=== PATIENT | male | born 1960 | race Caucasian/White ===

== ENCOUNTER 2024-01-05 15:42 | Emergency (ER) | payer BC, SELFPAY ==
[2024-01-05] VITALS (9 sets, daily range): BP systolic 129–158; BP diastolic 82–98; PULSE 74–81; RESP 10–21; TEMP 36.8; O2SAT 95–100
--- NOTE | ~2024-01-05 | XR_ITS ---
XR chest 1V Ordering provider: Damian Harp MD History: 63 years Male with . neuro symptoms . Comparison: None. FINDINGS: MEDIASTINUM: The cardiac silhouette is not enlarged. LUNGS: No infiltrates, effusions or pneumothorax. OTHER: No free air under the diaphragm. IMPRESSION: No acute cardiopulmonary pathology. Reviewed, dictated and finalized at location A.
--- NOTE | ~2024-01-05 | CT_ITS ---
CTA brain carotid Ordering provider: Damian Harp MD History: 63 years Male with . right arm weakness . Comparison: None. Technique: CT of the head without contrast. Radiation reduction technique utilized.The dose-length product was 1708.38 mGy. 100 mL Omnipaque 350 was given IV. FINDINGS: BRAIN PARENCHYMA AND CSF SPACES: Mild leukoaraiosis and diffuse cortical atrophy. Mild atheromatous d isease. No midline shift, mass effect or hemorrhage. The brain parenchyma and CSF spaces are otherwi se normal. VISUALIZED PARANASAL SINUSES: Well aerated. MASTOIDS: Well aerated. BONES: The bones appear intact. SOFT TISSUES: Visualized nasopharynx is normal. Superficial soft tissues are normal. IMPRESSION: No acute intracranial findings. CTA brain carotid Ordering provider: Damian Harp MD History: . right arm weakness . Comparison: None. Technique: CT angiogram head and neck was performed following timed intravenous injection of contrast . Thin slice axial images and reformatted coronal images were obtained. Three dimensional reformatted images of the brain were also obtained using a [employer] workstation. Radiation reduction technique utilized.The dose-length product was 1708.38 mGy FINDINGS: HEAD: --ANTERIOR AND MIDDLE CEREBRAL ARTERIES AND BRANCHES: Small caliber right A1 segment otherwise, the N ormal caliber and contour. --INTERNAL CAROTID ARTERIES: Mild atheromatous disease but no significant stenosis. No occlusion. --BASILAR ARTERY AND BRANCHES: Normal caliber and contour. No atheromatous disease. --POSTERIOR CEREBRAL ARTERIES: Normal caliber and contour --POSTERIOR COMMUNICATING ARTERIES: Not visualized which is probably related to congenital absence or small size. --ANEURYSM: None visualized. NECK: Tortuous both carotid arteries. --RIGHT CERVICAL CAROTID SYSTEM: Normal caliber and contour. Percent stenosis per NASCET criteria is No carotid dissection. Otherwise, no significant atheromatous disease or stenosis of the cervical ca rotid system. --LEFT CERVICAL CAROTID SYSTEM: Normal caliber and contour. Percent stenosis per NASCET criteria is No carotid dissection. Otherwise, no significant atheromatous disease or stenosis of the cervical carotid system. --VERTEBRAL ARTERIES: Normal caliber and contour. --VISUALIZED AORTIC ARCH AND BRANCHING VESSELS: Normal caliber and contour. No significant atheromato us disease. --SOFT TISSUES: Normal. --CERVICAL SPINE: Age appropriate degenerative changes. IMPRESSION: 1. Normal CTA head and neck. Percent stenosis per NASCET criteria is 0%. 2. No evidence of significant stenosis or occlusion seen in the intracranial vessels. 3. Small caliber right A1 segment. Reviewed, dictated and finalized at location A. IMPRESSION: No acute intracranial findings. CTA brain carotid Ordering provider: Damian Harp MD History: . right arm weakness . Comparison: None. Technique: CT angiogram head and neck was performed following timed intravenous injection of contrast. Thin slice axial images and reformatted coronal images were obtained. Three dimensional reformatted images of the brain were also obta ined using a [employer] workstation. Radiation reduction technique utilized.The dose-length product was 1708.38 mGy FINDINGS: HEAD: --ANTERIOR AND MIDDLE CEREBRAL ARTERIES AND BRANCHES: Small caliber right A1 se gment otherwise, the Normal caliber and contour. --INTERNAL CAROTID ARTERIES: Mild atheromatous disease but no significant steno sis. No occlusion. --BASILAR LACHELLE
--- NOTE | 2024-01-05 16:17 | ECG_ITS ---
Test Date: 2024-01-05 17:08:03 Measurements Intervals [place] Rate: 74 P: 39 WA: 160 QRS: -47 QRSD: 93 T: 32 QT: 380 QTc: 423 Interpretive Statements SINUS RHYTHM LEFT ANTERIOR FASCICULAR BLOCK [QRS AXIS <= -45, QR IN I, RS IN II] No previous ECG available for comparison Electronically Signed On 01-06-2024 10:33:58 CDT by Maryann Best M.D.
[2024-01-05 16:33] LABS: Basophils Percent Auto 0.4 % (0.2-1.2); Eosinophils Absolute Auto 0.1 K/mm3 (0-0.3); Eosinophils Percent Auto 0.7 % (0-4.4); Hematocrit 44.2 % (42.0-52.0); Hemoglobin 15.8 g/dL (14.0-18.0); Immature Granulocyte Absolute 0.03 K/mm3 (0.00-0.031); Immature Granulocyte Percent A 0.4 % (0-0.5); Lymphocytes Percent Auto 20.9 % (18.3-44.2); Mean Corpuscular HGB Conc 35.7 g/dl (32-36); Mean Corpuscular Hemoglobin 29.6 pg (26-34); Mean Corpuscular Volume 82.8 fl (80-100); Mean Platelet Volume 8.1 fl (7.4-10.4); Monocytes Absolute Auto 0.7 K/mm3 (0.1-0.6); Monocytes Percent Auto 8.5 % (2.6-8.5); Neutrophils Absolute Auto 5.6 K/mm3 (1.3-6.7); Neutrophils Percent Auto 69.1 % (45.5-73.1); Platelet Count Result 242 k/mm3 (150-375); Red Blood Count 5.34 M/mm3 (4.6-6.20); Red Cell Distribution Width 12.5 % (11.5-14.5); White Blood Count 8.1 K/mm3 (4.5-10.0)
[2024-01-05 16:47] LABS: Alanine Aminotransferase 54 U/L (6-50); Albumin Level 4.5 g/dL (3.5-5.1); Alkaline Phosphatase 90 U/L (38-126); Anion Gap 11 mmol/L (4-12); Aspartate Amino Transferase 38 U/L (17-59); Bilirubin,Total 0.9 mg/dL (0.2-1.3); Blood Urea Nitrogen 18 mg/dL (9-20); Calcium 9.4 mg/dL (8.4-10.2); Carbon Dioxide 23 mmol/L (22-30); Chloride 96 mmol/L (98-107); Estimated Glomerular Filt Rate > 60; Glucose 172 mg/dL (65-110); Potassium 3.9 mmol/L (3.4-5.0); Sodium 130 mmol/L (137-145)
[2024-01-05 16:59] LABS: Troponin I < 0.012 ng/mL (0.000-0.034)
[2024-01-05 17:00] LABS: INR 0.9; Prothrombin Time 12.3 Seconds (11.1-14.7)
[2024-01-05 17:01] LABS: Partial Thromboplastin Time 28.5 Seconds (22.3-36.8)
--- NOTE | 2024-01-05 17:15 | ED.GENADULT ---
HPI - General Adult General Chief complaint: Neuro Symptoms/Deficit Stated complaint: numbness right side face Time Seen by Provider: 01/05/24 16:41 History of Present Illness HPI narrative: patient is a 63-year-old male who presents ER with stroke-like symptoms. He is driving from [place] to [place] to take his daughter to college. Early in the morning he stopped and got of the car and developed dizziness. He did not have the symptoms while in the car. It then went away after several minutes. Then later developed squiggly lines in his right peripheral vision in both eyes. He then developed the inability to comprehend the words on his cellphone when he is looking at his cellphone. At 1600 the patient developed right-sided numbness to his face and right arm. He also had some expressive aphasia according to family who witnessed this. It lasted 20-25 minutes. Patient currently has no symptoms. No history of CVA. He does have history of coronary disease with cardiac stenting. He is on baby aspirin. Review of Systems Review of Systems: All systems reviewed & are unremarkable except as noted in HPI and below Constitutional: Constitutional: Reports no additional constitutional complaints ENT: Reports system reviewed and no additional complaints, except as documented Cardiovascular: Cardiovascular: Reports no additional cardiovascular complaints Respiratory: Respiratory: Reports no additional respiratory complaints Musculoskeletal: Musculoskeletal: Reports no additional musculoskeletal complaints Neurologic: Reports dizziness, Denies headache(s), Denies focal weakness and Reports numbness Comments: Visual changes PMFSH Past Medical History Medical History (Updated 01/05/24 @ 18:31 by Damian Harp MD) Diabetes Hyperlipidemia Hypertension Surgical History Surgical History (Updated 01/05/24 @ 17:18 by Damian Harp MD) History of percutaneous coronary intervention Exam Narrative: GENERAL: Well-appearing, well-nourished, and in no acute distress. HEAD: Normocephalic, atraumatic. EYES: PERRL and EOMI. ENT: Mucous membranes moist. CHEST: Clear to auscultation. No respiratory distress. HEART: Regular rate and rhythm. Normal peripheral pulses. ABDOMEN: Soft, nontender, nondistended. EXTREMITIES: Normal range of motion. No edema. SKIN: Warm, dry, no rash. NEURO: Alert and oriented x3. NIH stroke scale of 0. PSYCH: Normal mood and affect. Course Course Emergency Course: Patient resting comfortably. Informed of lab and imaging results. We have discussed the patient's symptoms and concern for TIA. Patient prefers to leave against medical advice. We have discussed possibility of missed diagnosis including atrial fibrillation, stroke, intracranial tumor etcetera. We discussed that should he develop symptoms while he is in [place] moving his daughter in to her dorm and develops recurrence of symptoms he should go immediately. He staying near [facility] we discussed that this is a comprehensive stroke center. At the patient's request I am providing him with a copy of his images and labs. He will contact his primary care doctor through his patient care portal and attempt follow-up in [place] where he lives. Vital Signs Vital signs: Vital Signs Pulse Rate 80 01/05/24 16:20 Respiratory Rate 17 01/05/24 16:20 Blood Pressure 158/97 H 01/05/24 16:20 Pulse Oximetry 98 01/05/24 16:20 Pulse Rate 76 01/05/24 17:31 Respiratory Rate 10 L 01/05/24 17:31 Blood Pressure 133/87 01/05/24 17:31 Pulse Oximetry 99 01/05/24 17:31 Medical Decision Making Vital Signs Vital Signs: Vital Signs Pulse Rate 80 01/05/24 16:20 Respiratory Rate 17 01/05/24 16:20 Blood Pressure 158/97 H 01/05/24 16:20 Pulse Oximetry 98 01/05/24 16:20 Pulse Rate 76 01/05/24 17:31 Respiratory Rate 10 L 01/05/24 17:31 Blood Pressure 133/87 01/05/24 17:31
[2024-01-10 08:02] LABS: Estimated Glomerular Filt Rate > 60
== END 2024-01-05 18:49 | disposition left against medical advice (07) ==
PROVIDERS: Emergency Provider Emergency Medicine
DX: G45.9 Transient cerebral ischemic attack, unspecified (principal); E78.5 Hyperlipidemia, unspecified; E11.9 Type 2 diabetes mellitus without complications; I10 Essential (primary) hypertension
CPT/HCPCS: 36415; 70496; 70498; 71045; 80053; 82565; 84484; 85025; 85610; 85730; 93005; 99284; Q9967